=== PATIENT | male | born 1985 ===

== ENCOUNTER 2018-01-10 13:58 | Emergency (ER) | payer OTHER, SELFPAY ==
[2018-01-10 14:10] VITALS: BP 120/45; PULSE 75; RESP 16; TEMP 37.1; O2SAT 96
--- NOTE | 2018-01-10 14:20 | DI.RAD_ITS ---
SYMPTOMS/DIAGNOSIS: SPRAINED ANKLE, LEFT LATERAL MALLEOLAR PAIN LEFT ANKLE: There is mild soft tissue swelling over the lateral malleolus. No fracture or ankle mortise widening is seen. The talar dome appears intact. IMPRESSION: Lateral soft tissue swelling.
--- NOTE | 2018-01-10 15:57 | DI.VRAD_ITS ---
EXAM: XR Left Ankle Complete, 3 or more Views EXAM DATE/TIME: 01/10/2018 2:22 PM CLINICAL HISTORY: 32 years old, male; Pain and signs and symptoms; Swelling or effusion of joint; Ankle; Left; Patient HX: Left lat mal pain, per PT: Twisted while walking TECHNIQUE: XR Left ankle 3 or more views. COMPARISON: No relevant prior studies available. FINDINGS: Bones/joints: Normal. Soft tissues: Mild lateral malleolar soft tissue swelling IMPRESSION: Soft tissue injuries.No fracture, fracture lucency or dislocation Dictated and Authenticated by: Tricia Powell MD. Ordering:NINA RODAS MD
--- NOTE | 2018-01-10 16:08 | W.ED.GENAD ---
Discharge Plan Disposition Patient Disposition: HOME Condition: Good Discharge Details Chief Complaint: Orthopedic Clinical Impression: Left ankle sprain Primary Care Provider: NONE,NONE ED Provider: Pan Whitaker Home Meds and New Rx's Prescriptions: No Action No Known Home Meds RF: 0 Discharge Instructions Instructions: Ankle Sprain (ED) Additional Instructions: Please continue to use ice, Tylenol, and Motrin for control of your pain and swelling. Please keep your leg elevated at all times, and use the boot as often as possible as tolerable. Please follow-up with your primary care provider as soon as you return to [place]. Please keep off the foot, and do not walk on the ankle at all. Please use the crutches. If you notice any numbness, tingling, weakness, worsening pain please return immediately. Discharge Data Discharge Date/Time-TO BE ENTERED AT DEPARTURE: 01/10/18 16:25 Medical Decision Making This is a pleasant 32-year-old male who presents for evaluation of left ankle pain. He rolled his ankle while hiking, he did not hear a pop, he has been having notable pain in the left lateral ankle ever since the initial event and has been unable to bear weight. Patient has refused any Tylenol, Motrin, or pain control here. He has been using ice though. Physical exam demonstrates swelling and tenderness over the left lateral malleoli. X-ray demonstrates no evidence of acute fracture. We did get the patient up and he has notable pain with walking. I am concerned for potential ligamentous injury of the anterior talofibular ligament, as well as potential distal ligament fibular injury. With no evidence of knee pain or tenderness, no knee laxity, I doubt tibial plateau fracture or Mezanew fracture as this would be inconsistent with the patient's current clinical picture. We did give the patient a walking boot, as well as crutches. We did a long discussion regarding the importance of rest, ice, compression, elevation and NSAIDs. The patient does come from [place], and recommended close follow-up with his primary care provider. Additionally if the patient does not have improvement of his symptoms in the next 1-2 weeks to recommend close follow-up with orthopedic surgery for potential MRI and further evaluation. We discussed red flags for which to immediately return the patient understands. I have extensively reviewed the treatment plan and discharge instructions with the patient. I have addressed all patient concerns at this time. The patient was made aware of what symptoms to monitor for that would warrant a return to the emergency department. Discussed the plan with the patient, they demonstrate verbal understanding and agreement with our assessment and plan at this time. Per virtual radiology impression: Soft tissue injury. No fracture, fracture lucency or dislocation. CLINICAL HISTORY: 32 years old, male; Pain and signs and symptoms; Swelling or effusion of joint; Ankle; Left; Patient HX: Left lat mal pain, per PT: Twisted while walking TECHNIQUE: XR Left ankle 3 or more views. COMPARISON: No relevant prior studies available. FINDINGS: Bones/joints: Normal. Soft tissues: Mild lateral malleolar soft tissue swelling IMPRESSION: Soft tissue injuries.No fracture, fracture lucency or dislocation Dictated and Authenticated by: Tricia Powell MD. HPI General Date/Time Provider Initiated Documentation: 01/10/18 14:19. HPI Narrative: This is a pleasant [id number] male who presents for evaluation of left ankle pain. He states that he was walking on a trail when he twisted his ankle on a stick. He does not recall hearing any pop. Since then he has had notable pain, and is been unable to bear weight on the left ankle. He has some swelling on the left lateral aspect of his ankle, but he denies any other swelling. The majority of his pain is located on the left component. He denies any numbness or tingling. Symptoms are made worse with movement, relieved by nothing. He has not taken any Tylenol or Motrin for his pain, and states that he does not want anything for the pain at this time. Patient denies any previous surgeries. He denies any other pertinent medical history. He denies any IV or illicit drug use or any pertinent family history. Patient has no other complaints at this time. Related Data Home Medications Medication Instructions Recorded Confirmed Unknown [No Known Home Meds] 01/10/18 01/10/18 Allergies Allergy/AdvReac Type Severity Reaction Status Date / Time No Known Allergies Allergy Unverified 01/10/18 14:13 General Stated Complaint: Orthopedic DOLORES: 4 Review of Systems Review of Systems All systems reviewed & are unremarkable except as noted in HPI and below PFSH Social History Smoking/Tobacco Use Status: Never Exam Narrative Exam Narrative: 1.Const: Well-nourished, Well-developed, appearing stated age 2.Eyes: PERRL, no conjunctival injection, and symmetrical lids. 3.ENT: Atraumatic external nose and ears. Moist MM. Neck: Symmetric, trachea midline, No thyromegaly. 4.CVS: +S1/S2, No murmurs or gallops. Peripheral pulses 2+ and equal in all extremities. Brisk capillary refill in all extremities. 5.RESP: Unlabored respiratory effort. Clear to auscultation bilaterally. No wheezes rales or rhonchi 6.GI: Soft, Nontender/Nondistended, No hepatosplenomegaly. No guarding or rebound. 7.MSK: Normocephalic, No cyanosis or clubbing, Normal movement of all extremities except for the left ankle. Patient has +5 out of 5 strength in the lower extremities in dorsiflexion and plantarflexion, knee flexion and extension, hip flexion and extension, however plantar dorsiflexion inversion and eversion of the left foot is slightly limited secondary to pain although strength is intact. There is +2 over 2 dorsalis pedis pulses bilaterally. There is normal sensation to the skin with light touch at the foot knee and hip. Notable tenderness on the left lateral malleoli. No tenderness in the knee. No calcaneal tenderness. No pain on palpation of the midfoot. Anterior and posterior drawer test showed no significant laxity. Patient's left lateral pain is made worse with supination of the foot as well as plantar flexion normal sensation throughout. 8.Skin: Warm, Dry. No rashes or lesions. 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 Sensation grossly intact, no focal neurologic deficits. 10.Psych: (AAO) x3. Appropriate mood and affect Course Vital Signs Temperature 37.1 C 01/10/18 14:10 Pulse 75 01/10/18 14:10 Respiratory Rate 16 01/10/18 14:10 Blood Pressure 120/45 L 01/10/18 14:10 Pulse Oximetry 96 01/10/18 14:10 Temperature 37.1 C 01/10/18 14:10 Temperature Source Skin 01/10/18 14:10 Pulse 75 01/10/18 14:10 Respiratory Rate 16 01/10/18 14:10 Respiratory Effort Non-Labored 01/10/18 14:12 Blood Pressure 120/45 L 01/10/18 14:10 Pulse Oximetry 96 10/20/18 14:10 Pain Level 8 01/10/18 14:10
[2018-01-10 16:29] VITALS: BP 118/63; PULSE 68; RESP 16; TEMP 37; O2SAT 99
== END 2018-01-10 16:25 | disposition home or self-care (01) ==
PROVIDERS: Emergency Provider Student in an Organized Health Care Education/Training Program
DX: S93.402A Sprain of unspecified ligament of left ankle, initial encounter (principal); X50.0XXA Overexertion from strenuous movement or load, initial encounter; Y93.01 Activity, walking, marching and hiking
CPT/HCPCS: 29515; 99283; 73610; 99282; E0114; L4361